=== PATIENT | male | born 1970 | race Caucasian/White ===

== ENCOUNTER 2018-08-30 19:44 | Emergency (ER) | payer MEDICAID | END 2018-08-31 01:36 | disposition home or self-care (01) | LOC: FTE 08-31 01:36 | DX: R06.02 Shortness of breath (principal) | CPT/HCPCS: 71045; 93005; 99284-25 ==

== ENCOUNTER 2018-09-18 15:59 | Emergency (ER) | payer MEDICAID ==
[2018-09-18] MEDS: predniSONE 20 MG TAB PO (19:26)
[2018-09-18] MEDS: ALBUTEROL 0.083% (NEB) 2.5 MG/3 ML AMP HHN (19:30)
== END 2018-09-18 20:18 | disposition home or self-care (01) ==
LOC: E/R 15:59
DX: R05 Cough (principal)
CPT/HCPCS: 94664; 99283-25